=== PATIENT | female | born 1930 | race Caucasian/White ===

== ENCOUNTER 2019-05-16 12:28 | Observation (INO) ==
[2019-05-16] MEDS ORDERED: ACETAMINOPHEN 1,000 MG/100 ML VIAL IV STA (13:43)
[2019-05-16] MEDS ORDERED: SODIUM CHLORIDE 0.9% 500 ML IV SCH (13:45)
[2019-05-16 14:12] LABS: Basophils # (auto) 0.03 K/uL (0-0.2); Basophils % (auto) 0.8 %; Eosinophils # (auto) 0.12 K/uL (0-0.5); Hematocrit (blood only) 34.9 % (37-47); Hemoglobin 11.2 g/dL (12.0-16.0); Lymphocytes # (auto) 0.64 K/uL (1.2-3.4); Lymphocytes % (auto) 16.2 %; Mean Corpuscular Hgb Conc 32.1 g/dL (32-36); Mean Corpuscular Volume 93.6 fL (80-100); Mean Platelet Volume 9.7 fL (7.4-10.4); Monocytes # (auto) 0.31 K/uL (0.11-0.59); Monocytes % (auto) 7.8 %; Neutrophils # (auto) 2.85 K/uL (1.4-6.5); Neutrophils % (auto) 72.2 %; Platelet Count 269 K/uL (130-400); RDW Coefficient of Variation 14.6 % (11.5-14.5); RDW Standard Deviation 49.6 fL (36.4-46.3); Red Blood Count 3.73 M/uL (4.2-5.4); White Blood Count 3.95 K/uL (4.8-10.8)
--- NOTE | 2019-05-16 14:14 | XRay Report ---
XR chest 1V portable CLINICAL HISTORY: Chest Pain pain COMPARISON STUDY: No previous studies for comparison. FINDINGS: Poorly defined parenchymal infiltrate left base. Lungs otherwise appear clear. Mild stable cardiac enlargement. Diaphragms are smooth. Multiple old right-sided rib fractures. IMPRESSION: Poorly defined parenchymal infiltrate left base. ACT 112: Negative or not required by law. The above report was generated using voice recognition software. It may contain grammatical, syntax or spelling errors. Electronically signed by: Edwin Barrios M.D. 05/16/2019 2:13 PM
[2019-05-16 14:26] LABS: Alanine Aminotransferase 18 U/L (12-78); Aspartate Aminotransferase 15 U/L (15-37); BUN Creatinine Ratio 23.4 (10-20); Blood Urea Nitrogen 23 mg/dl (7-18); Calcium 8.4 mg/dl (8.5-10.1); Carbon Dioxide 27 mmol/L (21-32); Chloride 110 mmol/L (98-107); Est GFR (African American) 60.4; Est GFR (Non-African American) 52.1; Glucose 92 mg/dl (70-99); Lipase 115 U/L (73-393); Sodium 141 mmol/L (136-145)
[2019-05-16 14:31] LABS: Albumin Globulin Ratio 0.8 (0.9-2); Alkaline Phosphatase 91 U/L (45-117); Bilirubin,Total 0.3 mg/dl (0.2-1); Troponin I < 0.015 ng/ml (0-0.045)
--- NOTE | 2019-05-16 15:27 | CT Scan Report ---
ABDOMEN AND PELVIS CT WITHOUT CONTRAST CT DOSE: 367.97 mGy.cm HISTORY: low back pain TECHNIQUE: Multiaxial CT images of the abdomen and pelvis were performed without contrast. A dose lo wering technique was utilized adhering to the principles of ALARA. COMPARISON STUDY: None. FINDINGS: Patchy groundglass densities at the lung bases favor mild dependent change. No pneumoperito neum. No pneumatosis. Old nonunited right pubic bone fractures. 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 Old, healed right-sided rib fractures. Prior vertebroplasty at old L3 and L4 compression deformit ies. Mild superior endplate compressions weren't L1 is technically age indeterminate but also likely old. Mild paravertebral edema surrounding the acute to subacute inferior endplate compression fractur e at L5. This fracture extends into the left pedicle. This demonstrates less than 10% loss of height. No significant retropulsion. Right-sided L5 pars defect is noted. Moderate thickening of the visuali zed distal esophagus. The heart is mildly enlarged. There is a moderate hiatus hernia. Punctate calci fication within the uterus. The bladder is unremarkable. There is a 2 cm right ovarian cyst. The unen hanced liver, gallbladder, spleen, adrenal glands, and pancreas are unremarkable. No renal or uretera l stones. No hydronephrosis. A 1 cm exophytic hypodense lesion within the left kidney. This favors a hyperdense cyst. There are left peripelvic renal cysts. Tortuous abdominal aorta. No retroperitoneal lymphadenopathy. Suboptimal evaluation for bowel pathology due to the lack of intravenous and oral co ntrast. However, there is no definite bowel wall thickening or obstruction. Colonic diverticulosis. N o evidence for diverticulitis. IMPRESSION: 1. An acute to subacute mild inferior endplate compression fracture at L5. This extends into the left L5 pedicle. No associated retropulsion. 2. Additional old compression deformities and vertebroplasty within the lumbar spine as described abo ve. 3. No definite bowel wall thickening or obstruction on this noncontrast study. 4. Colonic diverticulosis. 5. Additional findings as described above. ACT 112: Negative or not required by law. Electronically signed by: Codey Jean M.D. 05/16/2019 3:26 PM
--- NOTE | 2019-05-16 15:44 | Electrocardiogram Report ---
Test Reason : Blood Pressure : / mmHG Vent. Rate : 067 BPM Atrial Rate : 067 BPM P-R Int : 170 ms QRS Dur : 088 ms QT Int : 414 ms P-R-T Axes : 042 020 056 degrees QTc Int : 437 ms Sinus rhythm with Premature supraventricular complexes Otherwise normal ECG When compared with ECG of 29-AUG-2011 13:49, Premature supraventricular complexes are now Present Confirmed by Willian Jordan ([id number]) on 05/16/2019 3:44:12 PM Referred By: Janay Hicks Confirmed By:Willian Jordan
[2019-05-16] MEDS ORDERED: MoRPHine SULFATE 2 MG/ML CARP IV STA (15:49)
--- NOTE | 2019-05-16 16:58 | Magnetic Resonance Report ---
MR lumbar spine wo con HISTORY: Pain low back pain TECHNIQUE: Multiplanar multisequence MRI of the lumbar spine was performed without the use of contras t. COMPARISON: None. FINDINGS: For the purpose of the report the L5-S1 disc space will be located on axial image 23 of 26. Moderate compression deformity of L4 with a more significant compression deformity of L3. Evidence fo r prior kyphoplasty set the sites. Edematous change of the bone marrow involving the L5 vertebral body as well as superior aspect of S1. It is suggestive of posttraumatic vertebral body contusions. No evidence for subluxation. Sagittal i mages suggest multifactorial narrowing of the spinal canal at multiple levels. L1-L2: Mild degenerative change of the posterior facets. No evidence for disc herniation or spinal st enosis. L2-L3: Broad-based disc herniation with moderate impact on the anterior thecal sac. Moderate multifac torial narrowing of the spinal canal. L3-L4: Significant multifactorial narrowing of the spinal canal. Broad-based disc herniation. Signifi cant narrowing of the right neural foramina. Considerable degenerative change posterior elements. L4-L5: Mild broad-based disc herniation. Moderate impact upon the anterior thecal sac. Moderate narro wing of the right and to a lesser extent left neural foramina. L5-S1: Considerable degenerative changes of posterior elements. Several small synovial cyst. Moderate narrowing of the neural foramina bilaterally. IMPRESSION: 1. Prior compression deformities and vertebroplasty at L3 and L4. 2. Bone contusions of the L5 and S1 vertebral bodies. 3. Broad-based disc herniation with Moderate impact upon the anterior thecal sac at L2-L3 with modera te narrowing of the spinal canal. 4. 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 Significant multifactorial narrowing of the spinal canal at both levels is suggested. 5. Considerable degenerative change posterior elements L5-S1 with moderate narrowing of the neural fo ramina bilaterally. ACT 112: Negative or not required by law. The above report was generated using voice recognition software. It may contain grammatical, syntax or spelling errors. Electronically signed by: Edwin Barrios M.D. 05/16/2019 4:57 PM
[2019-05-16] MEDS ORDERED: DEXAMETHASONE **PF** INJ 10 MG/ML VIAL IV ONE (17:17)
[2019-05-16] MEDS ORDERED: MoRPHine SULFATE 2 MG/ML CARP IV PRN ×2 (18:10→22:13)
--- NOTE | 2019-05-16 18:54 | Emergency Department Note ---
Entered by Elsy Mattson acting as a scribe for Shakeel Tompkins MD History of Present Illness General Chief complaint: Back Injury/Pain Stated complaint: BACK PAIN Time Seen by Provider: 05/16/19 13:03 Source: patient History of Present Illness Onset (ago): month(s) 1 Location: back Radiation: other (rght leg) Severity: similar to prior episodes Pain Consistency: + other (worsening) Maximum Pain Intensity: 10 Quality: + other (pressure) Associated symptoms: + other (Positive right leg, right toe and buttock numb ness, lost control of bowel, pelvic pressure, hard stools.); no fever/chills Treatments prior to arrival: other (Tylenol) The patient is an 88 year old male presenting to the Emergency Department complaining of worsening back pain starting 1 month ago. The patient reports that she has back pain that is radiating to down her right leg. She states that her buttocks and right toes are numb. She explains that she lost control of her bowel 1 day ago and that watery stool came out. She notes that she usually has a bowel movement every day but for the past few days her stools have been hard. She adds that she has pressure in her in her pelvic area. The patient reports that she has been taking Tylenol for her pain which hasnt been helping her back pain. She states that she has had back surgery and has osteoporosis. The patient denies recent fevers, chills and recent narcotic use. Home Medications Home Medications Medication Instructions Recorded Confirmed Type aspirin 325 mg tablet 325 mg PO DAILY tab 12/20/18 05/16/19 History multivitamin 1 tab PO DAILY 12/20/18 05/16/19 History cetirizine 10 mg tablet 10 mg PO DAILY #90 tab 02/10/19 05/16/19 History fluticasone 250 mcg-salmeterol 50 1 puffs INHALATION BID #3 ea 02/10/19 05/16/19 History mcg/dose blistr powdr for inhalation mometasone 50 mcg/actuation nasal 2 sprays INTRANASAL DAILY #3 gm 02/10/19 05/16/19 History spray losartan 50 mg PO DAILY 05/16/19 05/16/19 History metoprolol succinate [Toprol XL] 25 mg PO DAILY 05/16/19 05/16/19 History pregabalin 75 mg PO DAILY 05/16/19 05/16/19 History Allergies Allergy/AdvReac Type Severity Reaction Status Date / Time Penicillins Allergy Mild ITCHY RASH Verified 05/16/19 13:24 Sulfa (Sulfonamide Allergy Mild ITCHY RASH Verified 05/16/19 13:24 Antibiotics) alendronate sodium Allergy Verified 05/16/19 13:24 [From Fosamax] atorvastatin Allergy Verified 05/16/19 13:24 paroxetine Allergy Verified 05/16/19 13:24 Past Med/Surg History Medical History Allergic rhinitis (Acute) Anxiety disorder (Acute) Asthma (Acute) Chronic kidney disease, stage 3 (moderate) (Acute) Esophageal reflux (Acute) Hypertension (Acute) Nasal polyps (Acute) Nonrheumatic mitral (valve) insufficiency (Acute) Occipital neuralgia (Chronic) Osteoporosis (Acute) Paroxysmal atrial fibrillation with RVR (Acute) Peripheral neuropathy (Acute) Trigeminal neuralgia (Acute) Surgical History History of appendectomy History of arthroplasty of knee History of back surgery History of dilation and curettage History of hip surgery History of kyphoplasty percutaneous vertebral augmentation Status post nasal endoscopy with nasal polypectomy Family History Mother Stroke syndrome Father Myocardial infarction Unknown Coronary heart disease Social History Preferred Language: [place] 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 and A total of 10 systems reviewed and were otherwise negative Physical Exam Vital Signs Vital Signs - 24 hr 05/16/19 12:39 05/16/19 13:40 05/16/19 14:07 Temperature 36.6 C Temperature Source Oral Pulse Rate 108 H Pulse Rate [Finger] 66 Pulse Rhythm Regular Pulse Rhythm [Finger] Regular Pulse Strength Normal Pulse Strength [Finger] Normal Respiratory Rate 16 18 Respiratory Effort / Characteristics Non-Labored Non-Labored Respiratory Depth Normal Normal Respiratory Pattern Regular Blood Pressure 124/87 Blood Pressure [Right Arm] 154/80 H Blood Pressure Mean 99 Blood Pressure Mean [Right Arm] 104 Blood Pressure Position Sitting Blood Pressure Position [Right Arm] Pulse Oximetry 95 93 91 Oxygen Delivery Method Room Air Room Air Room Air Sepsis Recent Fever Within 48 Hours No Sepsis New/Unexplained Change in Mental Status No Sepsis Action Taken by Nursing No Action Required 05/16/19 14:08 05/16/19 16:30 05/16/19 17:24 Temperature Temperature Source Pulse Rate Pulse Rate [Finger] 72 81 71 Pulse Rhythm Pulse Rhythm [Finger] Regular Regular Pulse Strength Pulse Strength [Finger] Normal Respiratory Rate 18 22 17 Respiratory Effort / Characteristics Non-Labored Spontaneous Non-Labored Spontaneous Non-Labored Spontaneous Respiratory Depth Normal Normal Normal Respiratory Pattern Regular Regular Blood Pressure Blood Pressure [Right Arm] 143/88 H 164/78 H 144/86 H Blood Pressure Mean Blood Pressure Mean [Right Arm] 106 106 105 Blood Pressure Position Blood Pressure Position [Right Arm] Lying Pulse Oximetry 91 95 94 Oxygen Delivery Method Room Air Nasal Cannula Room Air Sepsis Recent Fever Within 48 Hours Sepsis New/Unexplained Change in Mental Status Sepsis Action Taken by Nursing 05/16/19 17:51 05/16/19 19:00 Temperature Temperature Source Pulse Rate Pulse Rate [Finger] 83 68 Pulse Rhythm Pulse Rhythm [Finger] Regular Pulse Strength Pulse Strength [Finger] Respiratory Rate 20 18 Respiratory Effort / Characteristics Non-Labored Spontaneous Non-Labored Spontaneous Respiratory Depth Normal Normal Respiratory Pattern Regular Blood Pressure Blood Pressure [Right Arm] 171/99 H 180/97 H Blood Pressure Mean Blood Pressure Mean [Right Arm] 123 124 Blood Pressure Position Blood Pressure Position [Right Arm] Lying Pulse Oximetry 95 92 Oxygen Delivery Method Room Air Room Air Sepsis Recent Fever Within 48 Hours Sepsis New/Unexplained Change in Mental Status Sepsis Action Taken by Nursing GENERAL: Awake, alert, uncomfortablel-appearing, in no distress HENT: Normocephalic, atraumatic. Oropharynx with dry mucous membranes and otherwise unremarkable. EYES: Normal conjunctiva. Sclera non-icteric. NECK: Supple. No nuchal rigidity. FROM. No JVD. RESPIRATORY: CTAB. CARDIAC: Regular rate, normal rhythm. Extremities warm and well perfused. Pulses equal. ABDOMEN: Soft, non-distended. No tenderness to palpation. No rebound or guarding. No masses. RECTAL: Deferred. MUSCULOSKELETAL: Mild lower lumbar discomfort without discrete tenderness. No midline ttp or step-offs. Chest examination reveals no tenderness. The back is symmetrical on inspection without obvious abnormality. There is no CVA ten derness to palpation. No joint edema. LOWER EXTREMITIES: Calves are equal size bilaterally and non-tender. No edema. No discoloration. NEURO: Normal sensorium. No sensory or motor deficits noted. 5/5 strength. SILT x 4 extremities. DTRs wnl. SKIN: No rash or jaundice noted. Course Course 1315: The patient was evaluated in room B11B, and a complete history and physical examination were performed. 1540: I reevaluated the patient at this time. 174: I reevaluated the patient at this time. 1844: Case was discussed with Dr. aWlker, orthopedic spine, who agrees with plan for admission. He will be available for inpatient team consultation. 1846: This was discussed with Fern Edmonds, who evaluate the pat ient for admission. Administered Medications Acetaminophen (Tylenol) 650 mg PO Q4H PRN PRN Reason: pain/fever Stop: 06/15/19 21:45 Last Admin: 05/16/19 23:36 Dose: 650 mg Documented by: [id number] Discontinued Medications Dexamethasone Sodium Phosphate (Decadron Pf) 10 mg IV NOW ONE Stop: 05/16/19 17:18 Last Admin: 05/16/19 17:21 Dose: 10 mg Documented by: [id number] Sodium Chloride (Nss) 500 mls @ 999 mls/hr IV .Q31M [facility] Stop: 05/16/19 14:15 Last Infusion: 05/16/19 15:49 Dose: 0 mls/hr Documented by: [id number] Admin: 05/16/19 14:02 Dose: 999 mls/hr Documented by: [id number] Acetaminophen (Ofirmev) 1,000 mg in 100 mls @ 400 mls/hr IV NOW STA Stop: 05/16/19 13:57 Last Infusion: 05/16/19 14:43 Dose: 0 mls/hr Documented by: [id number] Admin: 05/16/19 14:02 Dose: 400 mls/hr Documented by: [id number] Morphine Sulfate (Morphine Sulfate) 2 mg IV NOW STA Stop: 05/16/19 15:50 Last Admin: 05/16/19 16:22 Dose: 2 mg Documented by: [id number] Morphine Sulfate (Morphine Sulfate) 2 mg IV Q2H PRN PRN Reason: Pain Stop: 05/30/19 18:09 Last Admin: 05/16/19 19:22 Dose: 2 mg Documented by: [id number] Medical Decision Making Differential Diagnosis Differential diagnosis: Etiologies such as musculoskeletal, disc herniation, fracture, aortic disease, metastatic disease, cord compression, discitis, infection, renal colic, gastrointestinal, acute exacerbation of chronic back pain, sciatica, cauda equina, as well as others were entertained. Medical Records Attestation: I reviewed the patient's medical records. Home Medications Current Medication List: was personally reviewed by me Laboratory Data Attestation: I reviewed the patient's lab results. Result diagrams: 05/16/19 13:55 05/16/19 13:55 Lab Results 05/16/19 05/16/19 Range/Units 13:55 13:55 WBC 3.95 L (4.8-10.8) K/uL RBC 3.73 L (4.2-5.4) M/uL Hgb 11.2 L (12.0-16.0) g/dL Hct 34.9 L (37-47) % MCV 93.6 (80-100) fL MCH 30.0 (25-34) pg MCHC 32.1 (32-36) g/dL RDW Std Deviation 49.6 H (36.4-46.3) fL RDW Coeff of Alexa 14.6 H (11.5-14.5) % Plt Count 269 (130-400) K/uL MPV 9.7 (7.4-10.4) fL Immature Gran % (Auto) 0.0 % Neut % (Auto) 72.2 % Lymph % (Auto) 16.2 % [place] % (Auto) 7.8 % Eos % (Auto) 3.0 % Baso % (Auto) 0.8 % Immature Gran # (Auto) 0.00 (0.00-0.02) K/uL Neut # (Auto) 2.85 (1.4-6.5) K/uL Lymph # (Auto) 0.64 L (1.2-3.4) K/uL [place] # (Auto) 0.31 (0.11-0.59) K/uL Eos # (Auto) 0.12 (0-0.5) K/uL Baso # (Auto) 0.03 (0-0.2) K/uL Sodium 141 (136-145) mmol/L Potassium 4.0 (3.5-5.1) mmol/L Chloride 110 H (98-107) mmol/L Carbon Dioxide 27 (21-32) mmol/L Anion Gap 4.0 (3-11) BUN 23 H (7-18) mg/dl Creatinine 0.97 (0.6-1.2) mg/dl Est Cr Clr Drug Dosing Not Reportable Est GFR ( Amer) 60.4 Est GFR (Non-Af Amer) 52.1 BUN/Creatinine Ratio 23.4 H (10-20) Glucose 92 (70-99) mg/dl Calcium 8.4 L (8.5-10.1) mg/dl Total Bilirubin 0.3 (0.2-1) mg/dl AST 15 (15-37) U/L ALT 18 (12-78) U/L Alkaline Phosphatase 91 (45-117) U/L Troponin I < 0.015 (0-0.045) ng/ml Total Protein 7.0 (6.4-8.2) gm/dl Albumin 3.0 L (3.4-5.0) gm/dl Globulin 4.0 (2.5-4.0) gm/dl Albumin/Globulin Ratio 0.8 L (0.9-2) Lipase 115 (73-393) U/L Imaging Data Radiologist's Impression: Radiology results as stated below per my review and the radiologist's interpretation: MR lumbar spine wo con HISTORY: Pain low back pain TECHNIQUE: Multiplanar multisequence MRI of the lumbar spine was performed without the use of contrast. COMPARISON: None. FINDINGS: For the purpose of the report the L5-S1 disc space will be located on axial image 23 of 26. Moderate compression deformity of L4 with a more significant compression deformity of L3. Evidence for prior kyphoplasty set the sites. Edematous change of the bone marrow involving the L5 vertebral body as well as superior aspect of S1. It is suggestive of posttraumatic vertebral body contusions. No evidence for subluxation. Sagittal images suggest multifactorial narrowing of the spinal canal at multiple levels. L1-L2: Mild degenerative change of the posterior facets. No evidence for disc herniation or spinal stenosis. L2-L3: Broad-based disc herniation with moderate impact on the anterior thecal sac. Moderate multifactorial narrowing of the spinal canal. L3-L4: Significant multifactorial narrowing of the spinal canal. Broad-based disc herniation. Significant narrowing of the right neural foramina. Considerable degenerative change posterior elements. L4-L5: Mild broad-based disc herniation. Moderate impact upon the anterior thecal sac. Moderate narrowing of the right and to a lesser extent left neural foramina. L5-S1: Considerable degenerative changes of posterior elements. Several small synovial cyst. Moderate narrowing of the neural foramina bilaterally. IMPRESSION: 1. Prior compression deformities and vertebroplasty at L3 and L4. 2. Bone contusions of the L5 and S1 vertebral bodies. 3. Broad-based disc herniation with Moderate impact upon the anterior thecal sac at L2-L3 with moderate narrowing of the spinal canal. 4. 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 Significant multifactorial narrowing of the spinal canal at both levels is suggested. 5. Considerable degenerative change posterior elements L5-S1 with moderate narrowing of the neural foramina bilaterally. ACT 112: Negative or not required by law. The above report was generated using voice recognition software. It may contain grammatical, syntax or spelling errors. Electronically signed by: Edwin Barrios M.D. 05/16/2019 4:57 PM ABDOMEN AND PELVIS CT WITHOUT CONTRAST CT DOSE: 367.97 mGy.cm HISTORY: low back pain TECHNIQUE: Multiaxial CT images of the abdomen and pelvis were performed without contrast. A dose lowering technique was utilized adhering to the principles of ALARA. COMPARISON STUDY: None. FINDINGS: Patchy groundglass densities at the lung bases favor mild dependent ch griffin. No pneumoperitoneum. No pneumatosis. Old nonunited right pubic bone fractures. There is a right total hip arthroplasty. Old, healed right-sided rib fractures. Prior vertebroplasty at old L3 and L4 compression deformities. Mild superior endplate compressions weren't L1 is technically age indeterminate but also likely old. Mild paravertebral edema surrounding the acute to subacute inferior endplate compression fracture at L5. This fracture extends into the left pedicle. This demonstrates less than 10% loss of height. No significant retropulsion. Right-sided L5 pars defect is noted. Moderate thickening of the visualized distal esophagus. The heart is mildly enlarged. There is a moderate h iatus hernia. Punctate calcification within the uterus. The bladder is unremarkable. There is a 2 cm right ovarian cyst. The unenhanced liver, gallbladder, spleen, adrenal glands, and pancreas are unremarkable. No renal or ureteral stones. No hydronephrosis. A 1 cm exophytic hypodense lesion within the left kidney. This favors a hyperdense cyst. There are left peripelvic renal cysts. Tortuous abdominal aorta. No retroperitoneal lymphadenopathy. Suboptimal evaluation for bowel pathology due to the lack of intravenous and oral contrast. However, there is no definite bowel wall thickening or obstruction. Colonic diverticulosis. No evidence for diverticulitis. IMPRESSION: 1. An acute to subacute mild inferior endplate compression fracture at L5. This extends into the left L5 pedicle. No associated retropulsion. 2. Additional old compression deformities and vertebroplasty within the lumbar spine as described above. 3. No definite bowel wall thickening or obstruction on this noncontrast study. 4. Colonic diverticulosis. 5. Additional findings as described above. ACT 112: Negative or not required by law. Electronically signed by: Codey Jean M.D. 05/16/2019 3:26 PM XR chest 1V portable CLINICAL HISTORY: Chest Pain pain COMPARISON STUDY: No previous studies for comparison. FINDINGS: Poorly defined parenchymal infiltrate left base. Lungs otherwise appear clear. Mild stable cardiac enlargement. Diaphragms are smooth. Multiple old right-sided rib fractures. IMPRESSION: Poorly defined parenchymal infiltrate left base. ACT 112: Negative or not required by law. The above report was generated using voice recognition software. It may contain grammatical, syntax or spelling errors. Electronically signed by: Edwin Barrios M.D. 05/16/2019 2:13 PM ECG Data Attestation: I personally reviewed and interpreted this ECG as follows: Indication: + back/shoulder pain Rate (beats per minute): 67 Rhythm: + sinus rhythm ECG [place]: + Normal ECG ST segments: no ST depression and no ST elevation ECG Findings: + Other (QT-c 437. PSVCs.) Blood Pressure Blood Pressure Findings: Elevated blood pressure Blood Pressure Disposition: further management by hospitalist NATY Mancini The patient is a pleasant 88-year-old woman with pmhx of PAF who presents emergency department with persistent lower back pain over the past month which has become worse over the past several days per HPI. Of note, the patient reports having scant anal leakage last night but does report having a controlled bowel movement this morning. Denies any urinary retention. She is able to amb ulate with her walker but does report significant pain. CT Abd pelvis was performed and demonstrated acute to subacute mild inferior endplate compression fracture at L5 without any significant retropulsion. The patient was reevaluated and feeling improved after IV Tylenol however still with pain. Thus, patient was treated with IV Decadron and morphine and we agreed to proceed with a lumbar MRI. MRI demonstrates patient's previously noted compression fracture however does demonstrate disc herniation in the lumbar region with moderate to severe canal narrowing and some compression of the thecal sac. She was feeling improved after IV morphine. Given her worsening symptoms and MRI findings reasonable to admit the patient for pain control and spine evaluation. Patient was agreeable with this plan. Patient's case and MRI reviewed with Dr. Walker, orthopedic spine,. He agrees with plan for admission for pain control and he will be available for inpatient team consultation. Case was discussed with Fern Edmonds, who will evaluate the patient for admission. Impression & Plan Lumbosacral disc herniation, Compression fracture of lumbar vertebra Discharge Plan Visit Data *Final* Discharge Date/Time: 05/16/19 21:31 Chief Complaint: Back Injury/Pain Stated Complaint: BACK PAIN ED Provider: Shakeel Tompkins Discharge Problem: Lumbosacral disc herniation, Compression fracture of lumbar vertebra Patient Disposition: Admitted As Inpatient Discharge Instructions Interventions: ED Discharge Assessment Last Done: 05/16/19 21:31 The scribe's documentation has been prepared under my direction and personally reviewed by me in its entirety. I confirm that the note above accurately reflects all work, treatment, procedures, and medical decision making performed by me.
--- NOTE | 2019-05-16 21:30 | History & Physical Report ---
Date of Service May 16, 2019 Assessment & Plan (1) Back pain with right-sided radiculopathy: Present on admission with worsening low back pain radiated to the right lower extremity CT abd/pelvis showed acute to subacute mild inferior endplate compression fracture at L5. This extends into the left L5 pedicle. No associated retropulsion. Lumbar MRI showed: 1. Bone contusions of the L5 and S1 vertebral bodies. 3. Broad-based disc herniation with Moderate impact upon the anterior thecal sac at L2-L3 with moderate narrowing of the spinal canal. 4. Broad-based disc herniation at L3-L4 and L4-L5 combined with degenerative change posterior elements. Significant multifactorial narrowing of the spinal canal at both levels is suggested. 5. Considerable degenerative change posterior elements L5-S1 with moderate narrowing of the neural foramina bilaterally. Receive IV morphine and Decadron 10 mg in the ER Orthopedic consult Case discussed with orthopedic doctor Aaron recommended conservative management Will start Decadron 10 mg q8h as per Dr. Walker Will monitor blood sugar while on IV Decadron PT/OT eval Continue pain control Fall precaution Occipital Neuralgia Idiopathic peripheral neuropathy Continue Lyrica COPD Will hold Advair since pt is getting decadron 10mg q8h Will do Duoneb prn Abnomal CXR CXR showed poorly defined parenchymal infiltrate left base. Denies any upper respiratory infection Afebrile no leukocytosis Will hold on antibiotic for now, but if pt develops respiratory symptoms/febrile will start on abx Paroxysmal A. fib Rate control with metoprolol Xarelto was discontinued few years ago due to rectal bleeding Continue aspirin HTN BP elevates possible due to low back pain Continue Losartan Will add hydralazine prn for SBP above 170 DVT px SCD (due to history of rectal bleeding from anticoagulant in the past) CODE State condition code (does not want [facility]) History of Present Illness Chief Complaint: Low back pain Primary Care Provider: Janay Hicks DO 88 years old female with past medical history of paroxysmal A. fib, pulmonary hypertension, chronic diastolic CHF, hypertension, COPD presented to the ER with low back pain. Patient said about 1 month ago she had a fall while hanging light in front of her porch. She said she slipped and hit her back. She said she got up and ambulated fine but few days later she developed severe low back pain. She said she went to the urgent care where she had an x-ray done that was negative and prednisone was given. Patient said her back pain has been gradually worsening. She said the pain is worse around the tailbone area and radiated to her right thigh all the way down to her big toe. She said the pain is worse with movement sitting or standing and walking. She said that she has not been moving around much because her right lower extremity feels weak, numb and giving up on her. She said that she has to hold her right knee when ambulating for support to avoid falling. She said the pain is constant grade 9 out of 10 in severity. She said she has been taking Tylenol that provides some relief for about an hour. She said last week she had some urinary incontinence that is resolved this week. She said she is able to control her bowel and her bladder now. she said that about 5 years ago she had rectal bleeding from Xarelto where she had to receive 4 to 5 units of blood and the anticoagulant was discontinued. Denies any bowel or bladder loss, chest pain, palpitation, dizziness and fever. Allergies Allergy/AdvReac Type Severity Reaction Status Date / Time Penicillins Allergy Mild ITCHY RASH Verified 05/16/19 13:24 Sulfa (Sulfonamide Allergy Mild ITCHY RASH Verified 05/16/19 13:24 Antibiotics) alendronate sodium Allergy Verified 05/16/19 13:24 [From Fosamax] atorvastatin Allergy Verified 05/16/19 13:24 paroxetine Allergy Verified 05/16/19 13:24 Home Medications Home Medications Medication Instructions Recorded Confirmed Type aspirin 325 mg tablet 325 mg PO DAILY tab 12/20/18 05/16/19 History multivitamin 1 tab PO DAILY 12/20/18 05/16/19 History cetirizine 10 mg tablet 10 mg PO DAILY #90 tab 02/10/19 05/16/19 History fluticasone 250 mcg-salmeterol 50 1 puffs INHALATION BID #3 ea 02/10/19 05/16/19 History mcg/dose blistr powdr for inhalation mometasone 50 mcg/actuation nasal 2 sprays INTRANASAL DAILY #3 gm 02/10/19 05/16/19 History spray losartan 50 mg PO DAILY 05/16/19 05/16/19 History metoprolol succinate [Toprol XL] 25 mg PO DAILY 01/06/20 01/06/20 History pregabalin 75 mg PO DAILY 05/16/19 05/16/19 History Past Med/Surg History Surgical History History of appendectomy History of arthroplasty of knee History of back surgery History of dilation and curettage History of hip surgery History of kyphoplasty percutaneous vertebral augmentation Status post nasal endoscopy with nasal polypectomy Family History Mother Stroke syndrome Father Myocardial infarction Unknown Coronary heart disease Social History Preferred Language: Syriac Feels Safe at Home: Yes Smoking Status: Never smoker Review of Systems Review of Systems: All systems reviewed & are unremarkable except as noted in HPI & below Physical Exam Physical Exam: General- No acute distress Head- atraumatic Eyes- PERRL, EOMI, ENT- oropharynx clear Neck- supple, no JVD Lungs- clear to auscultation Heart- regular rhythm; +murmur Abdomen- normal bowel sounds, soft, nontender Extremities- no calf tenderness, Right great toe numbness Neuro- alert, oriented x 3; PERRL, EOMI; no facial palsy; no dysarthria Skin- warm & dry Results & Data Vital Signs (Past 12 Hours) Vital Signs Temp Pulse Pulse Resp BP BP Pulse Ox 05/16/19 19:00 68 18 180/97 H 92 05/16/19 17:51 83 20 171/99 H 95 05/16/19 17:24 71 17 144/86 H 94 05/16/19 16:30 81 22 164/78 H 95 05/16/19 14:08 72 18 143/88 H 91 05/16/19 14:07 91 05/16/19 13:40 66 18 154/80 H 93 05/16/19 12:39 36.6 C 108 H 16 124/87 95
[2019-05-16] MEDS ORDERED: ALBUT/IPRATROP 3MG/0.5MG NEB 3 ML VIAL NEB PRN (22:12)
[2019-05-16] MEDS ORDERED: HydrALAZINE HCL 20 MG/ML VIAL IV PRN (22:12)
[2019-05-16] MEDS: ACETAMINOPHEN 325 MG TAB PO PRN (23:36)
[2019-05-17] MEDS: dexAMETHasone 10 MG in SYRINGE 0 ML IV SCH ×3 (02:45→18:13)
[2019-05-17] MEDS ORDERED: ONDANSETRON INJ 2 MG/ML 2 ML VIAL IV ONE (08:22)
[2019-05-17 08:42] LABS: Hematocrit (blood only) 39.5 % (37-47); Hemoglobin 12.7 g/dL (12.0-16.0); Mean Corpuscular Hemoglobin 30.7 pg (25-34); Mean Corpuscular Hgb Conc 32.2 g/dL (32-36); Mean Corpuscular Volume 95.4 fL (80-100); Mean Platelet Volume 9.5 fL (7.4-10.4); Platelet Count 333 K/uL (130-400); RDW Coefficient of Variation 14.5 % (11.5-14.5); RDW Standard Deviation 50.3 fL (36.4-46.3); Red Blood Count 4.14 M/uL (4.2-5.4); White Blood Count 4.29 K/uL (4.8-10.8)
[2019-05-17] MEDS ORDERED: CETIRIZINE HCL 10 MG TABLET PO SCH (09:00)
[2019-05-17] MEDS ORDERED: MULTIVITAMIN TAB PO SCH (09:00)
[2019-05-17] MEDS ORDERED: LOSARTAN POTASSIUM 50 MG TAB PO SCH (09:00)
[2019-05-17] MEDS ORDERED: METOPROLOL SUCC 25MG EXT REL TAB PO SCH (09:00)
[2019-05-17] MEDS ORDERED: PREGABALIN 75 MG CAP PO SCH (09:00)
[2019-05-17] MEDS ORDERED: ASPIRIN 325 MG ECTAB PO SCH (09:00)
[2019-05-17 09:21] LABS: BUN Creatinine Ratio 18.7 (10-20); Calcium 8.9 mg/dl (8.5-10.1); Creatinine Clr Calc Pharmacy 32.1 ml/min; Est GFR (African American) 46.7; Est GFR (Non-African American) 40.3; Magnesium 2.2 mg/dl (1.8-2.4); Potassium 3.8 mmol/L (3.5-5.1)
--- NOTE | 2019-05-17 10:18 | Orthopedic Consultation ---
Date of Consultation May 17, 2019 Assessment & Plan (1) Back pain with right-sided radiculopathy: Images: Multilevel lumbar spondylosis with stenosis spinal canal high- grade is moderate. There is no tumor and there is no cancer no high-grade spondylolisthesis or stenosis. There is evidence of old kyphoplasty's procedures Assessment: Delightful 88-year-old female with combination stenosis spondylosis lumbar spine. Severe osteoporosis. No high-grade issues. No apparent obvious surgical indications Plan: Pain management is appropriate thus far well with the steroids. Recommending getting the pain management team involved with her care if she is not improving. I will gladly see her back as an outpatient around on her daily. History of Present Illness Reason for Consultation: Chief complaint: Low back pain right buttock pain right lower extremity difficulty. Pain significantly for her today sharp in nature. Ongoing now for about 2 months in duration. Was doing [employer] in March brought on the significant pain. Significant enough for her she did make a trip to the emergency room for evaluation treatment. She was admitted for pain control Attending Physician: Glen Álvarez MD Allergies Allergy/AdvReac Type Severity Reaction Status Date / Time Penicillins Allergy Mild ITCHY RASH Verified 05/16/19 13:24 Sulfa (Sulfonamide Allergy Mild ITCHY RASH Verified 05/16/19 13:24 Antibiotics) alendronate sodium Allergy Verified 05/16/19 13:24 [From Fosamax] atorvastatin Allergy Verified 05/16/19 13:24 paroxetine Allergy Verified 05/16/19 13:24 Home Medications Home Medications Medication Instructions Recorded Confirmed Type aspirin 325 mg tablet 325 mg PO DAILY tab 12/20/18 05/16/19 History multivitamin 1 tab PO DAILY 12/20/18 05/16/19 History cetirizine 10 mg tablet 10 mg PO DAILY #90 tab 02/10/19 05/16/19 History fluticasone 250 mcg-salmeterol 50 1 puffs INHALATION BID #3 ea 02/10/19 05/16/19 History mcg/dose blistr powdr for inhalation mometasone 50 mcg/actuation nasal 2 sprays INTRANASAL DAILY #3 gm 02/10/19 05/16/19 History spray losartan 50 mg PO DAILY 05/16/19 05/16/19 History metoprolol succinate [Toprol XL] 25 mg PO DAILY 05/16/19 05/16/19 History pregabalin 75 mg PO DAILY 05/16/19 05/16/19 History Patient History Medical History Allergic rhinitis (Acute) Anxiety disorder (Acute) Asthma (Acute) Chronic kidney disease, stage 3 (moderate) (Acute) Esophageal reflux (Acute) Hypertension (Acute) Nasal polyps (Acute) Nonrheumatic mitral (valve) insufficiency (Acute) Occipital neuralgia (Chronic) Osteoporosis (Acute) Paroxysmal atrial fibrillation with RVR (Acute) Peripheral neuropathy (Acute) Trigeminal neuralgia (Acute) Surgical History History of appendectomy History of arthroplasty of knee History of back surgery History of dilation and curettage History of hip surgery History of kyphoplasty percutaneous vertebral augmentation Status post nasal endoscopy with nasal polypectomy Family History Mother Stroke syndrome Father Myocardial infarction Unknown Coronary heart disease Social History Preferred Language: Romansh Histology Assistant Required: No Beliefs That Will Affect Care: None Current Living Situation: Alone Other Information That Helps Us Care for You: No Feels Safe at Home: Yes Safety Concerns: Feels Safe At This Time Smoking Status: Never smoker Hx Alcohol Use: No Hx Substance Use: No Review of Systems Review of Systems: No fever sweats chills unexplained weight loss gain No nausea vomiting urgency frequency. She has no true incontinence of bowel function but trouble with retention Denies skin changes or neurological issues Denies vascular insults Physical Exam Physical Exam: Vital signs stable occluding a pulse 86 bpm Pupils reactive to light essentially normal1 Skin integumentary normal no zoster rashe Heart lungs not auscultated Neurologic: She has adequate motor strength of lower extremities no's sensory or reflex changes. No significant pain with straight leg raising Musculoskeletal: Examination normal with good motion flexion extension internal and external rotation no leg length discrepancy s Results & Data Vital Signs (Past 12 Hours) Vital Signs Temp Pulse Resp BP Pulse Ox 05/17/19 07:08 36.5 C 86 16 139/83 91 05/16/19 23:20 36.9 C 77 16 162/94 H 92 PG Care Time/CCT Total # of Minutes Spent Total Time Spent with Patient: Total time spent is greater than 50% in coordination of care (as documented) at patient's floor/unit and/or counseling patient:
--- NOTE | 2019-05-17 12:26 | Pain Management Consultation ---
Date of Consultation May 17, 2019 Assessment & Plan (1) Back pain with right-sided radiculopathy: 1. The patient reports resolution of her pain at this time with IV steroids and oral Tylenol. She denies need for additional pain services at this time 2. She was provided my office contact information should she have difficulty with pain in the future. Could consider L5-S1 interlaminar epidural steroid injections versus other adjuvant medications 3. Should oral Tylenol not be sufficient in reducing her pain at this time, recommend utilization of tramadol 50 mg p.o. every 8 to every 12 as needed pain. She was counseled on risk benefits and side effects of the medications 4. PT and OT as previously ordered 5. Thank you for this consult I be happy to see her in my office should she have any further questions. We will sign off at this time. (2) Lumbosacral disc herniation: (3) Peripheral neuropathy: (4) Compression fracture of lumbar vertebra: (5) Chronic kidney disease, stage 3 (moderate): History of Present Illness Attending Physician: Glen Álvarez MD History of Present Illness 88-year-old female who was hanging [employer] decorations in March and fell leading to a L5 and S1 contusion per MRI this admission. She states she was having intractable 50% axial 50% right L5 radicular symptoms to the level of the toes. She states that pain was excruciating at home 9-10 out of 10 prompting presentation to the [facility] emergency room. She states that with utilization of IV steroids and 2 doses of IV morphine pain is now 0 out of 10. She reports only needing oral Tylenol last evening as well as continued IV steroids to minimize pain. She reports she slept well without difficulty. She denies any bowel or bladder incontinence, motor weakness, footdrop, fever, chills, night sweats. She has a past history of compression fracture at L3 and L4 requiring vertebroplasty x2. She reports prior epidural steroid injection x2 approximately 20 years ago in [place] for her lumbar spinal stenosis with excellent results. Pain Assessment Full Body Front + Back: 1. [facility] Combined Pain Scale: 0 - No Pain Allergies Allergy/AdvReac Type Severity Reaction Status Date / Time Penicillins Allergy Mild ITCHY RASH Verified 05/16/19 13:24 Sulfa (Sulfonamide Allergy Mild ITCHY RASH Verified 05/16/19 13:24 Antibiotics) alendronate sodium Allergy Verified 05/16/19 13:24 [From Fosamax] atorvastatin Allergy Verified 05/16/19 13:24 paroxetine Allergy Verified 05/16/19 13:24 Home Medications Home Medications Medication Instructions Recorded Confirmed Type aspirin 325 mg tablet 325 mg PO DAILY tab 12/20/18 05/16/19 History multivitamin 1 tab PO DAILY 12/20/18 05/16/19 History cetirizine 10 mg tablet 10 mg PO DAILY #90 tab 02/10/19 05/16/19 History fluticasone 250 mcg-salmeterol 50 1 puffs INHALATION BID #3 ea 02/10/19 05/16/19 History mcg/dose blistr powdr for inhalation mometasone 50 mcg/actuation nasal 2 sprays INTRANASAL DAILY #3 gm 02/10/19 05/16/19 History spray losartan 50 mg PO DAILY 05/16/19 05/16/19 History metoprolol succinate [Toprol XL] 25 mg PO DAILY 05/16/19 05/16/19 History pregabalin 75 mg PO DAILY 05/16/19 05/16/19 History Patient History Medical History Allergic rhinitis (Acute) Anxiety disorder (Acute) Asthma (Acute) Chronic kidney disease, stage 3 (moderate) (Acute) Esophageal reflux (Acute) Hypertension (Acute) Nasal polyps (Acute) Nonrheumatic mitral (valve) insufficiency (Acute) Occipital neuralgia (Chronic) Osteoporosis (Acute) Paroxysmal atrial fibrillation with RVR (Acute) Peripheral neuropathy (Acute) Trigeminal neuralgia (Acute) Surgical History History of appendectomy History of arthroplasty of knee History of back surgery History of dilation and curettage History of hip surgery History of kyphoplasty percutaneous vertebral augmentation Status post nasal endoscopy with nasal polypectomy Family History Mother Stroke syndrome Father Myocardial infarction Unknown Coronary heart disease Social History Preferred Language: Japanese Civil Drafting Technician Required: No Beliefs That Will Affect Care: None Current Living Situation: Alone Other Information That Helps Us Care for You: No Feels Safe at Home: Yes Safety Concerns: Feels Safe At This Time Smoking Status: Never smoker Hx Alcohol Use: No Hx Substance Use: No Physical Exam Physical Exam: Constitutional: Well-developed, well-nourished, slightly frail. Accompanied by her son on exam (pt gave permission to speak in front of son) Psych: Awake, alert, and oriented 3 with normal affect and mood. Recent memory appears grossly intact Eyes: Pupils are equally round and reactive to light with normal size pupils, eyelids appear normal Ear, nose, mouth, and throat: Moist nasal and oral membranes, lips and tongues a ppear normal, no external ear abnormalities are noted Neck: The trachea is midline without deviation and no thyromegaly is noted Respiratory: Normal respiratory effort without distress, no audible wheezes or rhonchi CV: Normal S1 and S2 Chest: Deferred GI/abdomen: Non-tender without guarding soft Musculoskeletal: Head is normocephalic and atraumatic, gait not observed Cervical: Lordotic curve: Normal Range of motion is normal with extension, flexion, side-bending, rotation Strength: Strength is equal bilaterally with 5 out of 5 strength in all planes Sensation of upper extremities: Intact bilaterally Thoracic: Kyphotic curve: slightly increased kyphosis Range of motion is decreased slightly with extension, flexion, side-bending, rotation Tenderness: Nontender over the axial midline Facet provocation: Negative bilaterally Myofascial spasm: No appreciable spasm. No discrete trigger points noted Lumbar: Lordotic curve: near complete loss of lumbar lordosis Range of motion is decreased in all planes with extension, flexion, side- bending, rotation Tenderness: mild to moderately tender over the axial midline particularly from L4-S1 Facet provocation: Negative bilaterally Straight leg raise: Negative bilaterally Step-off injuries: None Strength: Strength is equal bilaterally with 5 out of 5 strength in all planes Sensation of lower extremities: Intact bilaterally Deep tendon reflexes: Rated at 1+ in bilateral L4 and S1 Myofascial spasm: Minimal appreciable spasm. No discrete trigger points noted Greater trochanters: Nontender bilaterally Sacroiliac joints: Nontender bilaterally Pathologic reflexes noted: None Skin: No rashes, lesions, ulcers, or induration noted Neuro: No nystagmus noted, the tongue is midline, the patient is able to rotate their head bilaterally : Deferred Results Diagnostic Review MRI: non enhanced, reports reviewed and findings discussed with patient MRI Findings: MR Lumbar spine wo con 05/16/19 HISTORY: Pain low back pain TECHNIQUE: Multiplanar multisequence MRI of the lumbar spine was performed without the use of contrast. COMPARISON: None. FINDINGS: For the purpose of the report the L5-S1 disc space will be located on axial image 23 of 26. Moderate compression deformity of L4 with a more significant compression deformity of L3. Evidence for prior kyphoplasty set the sites. Edematous change of the bone marrow involving the L5 vertebral body as well as superior aspect of S1. It is suggestive of posttraumatic vertebral body contusions. No evidence for subluxation. Sagittal images suggest multifactorial narrowing of the spinal canal at multiple levels. L1-L2: Mild degenerative change of the posterior facets. No evidence for disc herniation or spinal stenosis. L2-L3: Broad-based disc herniation with moderate impact on the anterior thecal sac. Moderate multifactorial narrowing of the spinal canal. L3-L4: Significant multifactorial narrowing of the spinal canal. Broad-based disc herniation. Significant narrowing of the right neural foramina. Considerable degenerative change posterior elements. L4-L5: Mild broad-based disc herniation. Moderate impact upon the anterior thecal sac. Moderate narrowing of the right and to a lesser extent left neural foramina. L5-S1: Considerable degenerative changes of posterior elements. Several small synovial cyst. Moderate narrowing of the neural foramina bilaterally. IMPRESSION: 1. Prior compression deformities and vertebroplasty at L3 and L4. 2. Bone contusions of the L5 and S1 vertebral bodies. 3. Broad-based disc herniation with Moderate impact upon the anterior thecal sac at L2-L3 with moderate narrowing of the spinal canal. 4. Broad-based disc herniation at L3-L4 and L4-L5 combined with degenerative change posterior elements. Significant multifactorial narrowing of the spinal canal at both levels is suggested. 5. Considerable degenerative change posterior elements L5-S1 with moderate narrowing of the neural foramina bilaterally. Previous Records Review Previous Records: personally reviewed by me Opioid Risk Assessment Opioid Risk Assessment: risk assessment performed and no issues identified
[2019-05-17] MEDS ORDERED: TRAMADOL HCL 50 MG TABLET PO PRN (12:46)
[2019-05-17] MEDS ORDERED: TRAMADOL HCL 50 MG TABLET PO SCH (13:00)
[2019-05-17] MEDS ORDERED: CALCIUM CARBONATE 500 MG CHEWABLE TAB PO PRN (17:10)
--- NOTE | 2019-05-17 19:25 | Discharge Summary ---
Date of Service May 17, 2019 Admission HPI Per Admitting Provider 88 years old female with past medical history of paroxysmal A. fib, pulmonary hypertension, chronic diastolic CHF, hypertension, COPD presented to the ER with low back pain. Patient said about 1 month ago she had a fall while hanging light in front of her porch. She said she slipped and hit her back. She said she got up and ambulated fine but few days later she developed severe low back pain. She said she went to the urgent care where she had an x-ray done that was negative and prednisone was given. Patient said her back pain has been gradually worsening. She said the pain is worse around the tailbone area and radiated to her right thigh all the way down to her big toe. She said the pain is worse with movement sitting or standing and walking. She said that she has not been moving around much because her right lower extremity feels weak, numb and giving up on her. She said that she has to hold her right knee when ambulating for support to avoid falling. She said the pain is constant grade 9 out of 10 in severity. She said she has been taking Tylenol that provides some relief for about an hour. She said last week she had some urinary incontinence that is resolved this week. She said she is able to control her bowel and her bladder now. she said that about 5 years ago she had rectal bleeding from Xarelto where she had to receive 4 to 5 units of blood and the anticoagulant was discontinued. Denies any bowel or bladder loss, chest pain, palpitation, dizziness and fever. Admission Exam Per Admitting Provider General- No acute distress Head- atraumatic Eyes- PERRL, EOMI, ENT- oropharynx clear Neck- supple, no JVD Lungs- clear to auscultation Heart- regular rhythm; +murmur Abdomen- normal bowel sounds, soft, nontender Extremities- no calf tenderness, Right great toe numbness Neuro- alert, oriented x 3; PERRL, EOMI; no facial palsy; no dysarthria Skin- warm & dry Principal Diagnosis Back pain with right-sided radiculopathy due to lumbosacral herniation, and compression fracture of lumbar vertebra Discharge Exam General- elderly female lying in bed in no acute distress, family present at the bedside Head- normocephalic, atraumatic Eyes- PERRL, EOMI ENT- oropharynx clear Neck- supple, no JVD Lungs- clear to auscultation b/l, no wheezing, rhonchi, crackles Heart- regular rhythm; +murmur Abdomen- normal bowel sounds, soft, nontender, nondistended, no guarding Extremities- no calf tenderness, moves extremities spontaneously Neuro- alert, oriented x 3; PERRL, EOMI; no facial palsy; no dysarthria, moves extremities spontaneously Skin- warm & dry Discharge Data Allergies Allergy/AdvReac Type Severity Reaction Status Date / Time Penicillins Allergy Mild ITCHY RASH Verified 05/16/19 13:24 Sulfa (Sulfonamide Allergy Mild ITCHY RASH Verified 05/16/19 13:24 Antibiotics) alendronate sodium Allergy Verified 05/16/19 13:24 [From Fosamax] atorvastatin Allergy Verified 05/16/19 13:24 paroxetine Allergy Verified 05/16/19 13:24 Consultations 05/16/19 18:08 ED Decision to Admit Stat 05/16/19 21:46 Consult Orthopedic Surgery Routine 05/17/19 10:18 Consult Pain Management Routine Ordered Studies 05/16/19 13:42 CT abd pelvis wo con Stat IMPRESSION: 1. An acute to subacute mild inferior endplate compression fracture at L5. This extends into the left L5 pedicle. No associated retropulsion. 2. Additional old compression deformities and vertebroplasty within the lumbar spine as described above. 3. No definite bowel wall thickening or obstruction on this noncontrast study. 4. Colonic diverticulosis. 5. Additional findings as described above. 05/16/19 15:50 MR lumbar spine wo con Stat IMPRESSION: 1. Prior compression deformities and vertebroplasty at L3 and L4. 2. Bone contusions of the L5 and S1 vertebral bodies. 3. Broad-based disc herniation with Moderate impact upon the anterior thecal sac at L2-L3 with moderate narrowing of the spinal canal. 4. Broad-based disc herniation at L3-L4 and L4-L5 combined with degenerative change posterior elements. Significant multifactorial narrowing of the spinal canal at both levels is suggested. 5. Considerable degenerative change posterior elements L5-S1 with moderate narrowing of the neural foramina bilaterally. Hospital Course (1) Back pain with right-sided radiculopathy: Present on admission with worsening low back pain radiated to the right lower extremity Back pain with right-sided radiculopathy due to lumbosacral herniation, and compression fracture of lumbar vertebra CT abd/pelvis showed acute to subacute mild inferior endplate compression fracture at L5. This extends into the left L5 pedicle. No associated ret ropulsion. Lumbar MRI showed: 1. Bone contusions of the L5 and S1 vertebral bodies. 3. Broad-based disc herniation with Moderate impact upon the anterior thecal sac at L2-L3 with moderate narrowing of the spinal canal. 4. Broad-based disc herniation at L3-L4 and L4-L5 combined with degenerative change posterior elements. Significant multifactorial narrowing of the spinal canal at both levels is suggested. 5. Considerable degenerative change posterior elements L5-S1 with moderate narrowing of the neural foramina bilaterally. Pt received IV morphine and Decadron 10 mg in the ER Orthopedics consulted - recommended conservative management and pain management consult - continued Decadron 10 mg q8h as per Dr. Walker (ortho), while inpt - Pain management consulted (Dr. Barnard), at this point pt denies any pain, recommend discharge on Tramadol, also provided pt with the contact information/ business card if further assistance needed from pain management Fall precaution Occipital Neuralgia Idiopathic peripheral neuropathy - Continue Lyrica COPD - hold Advair since pt is getting decadron 10mg q8h - Duoneb prn Abnormal CXR - CXR showed poorly defined parenchymal infiltrate left base - Denies any upper respiratory infection - Afebrile no leukocytosis - hold on antibiotic for now, but if pt develops respiratory symptoms/febrile will start on abx Paroxysmal A. fib Rate control with metoprolol Xarelto was discontinued few years ago due to rectal bleeding Continue aspirin HTN BP elevates possible due to low back pain Continue Losartan - added hydralazine prn for SBP above 170 Total Time Total Time Spent Total Time Spent (In Minutes): 35 Total Time Includes: Examination of the Patient, Discharge Planning, Medication Reconciliation and Communication With Other Providers Discharge Plan Discharge Items Patient Disposition: Home - Home Health Services Reason For Visit: LOW BACK PAIN Discharge Diagnosis: Back pain with right-sided radiculopathy due to lumbosacral herniation, and compression fracture of lumbar vertebra Activity: Resume your previous activity Activity Comment: as tolerated, pace yourself, ask for help as needed Non-emergency contact: Primary Care Provider and Neurologist Call non-emergency contact if: you have any medication questions and your symptoms worsen Follow-up/Referrals: Janay Hicks DO [Primary Care Provider] - Diet: Heart Healthy Addtl Attending Provider Instructions: Follow-up with your primary care provider within 1 week. For pain take Tylenol 1000 mg 3 times a day, maximal daily dose is 3000 mg. You can also use lidocaine patch, you can get those [id number] (Salonpas). For more severe pain, take prednisone or tramadol. If your pain is persistent please contact your pain management physician, Dr. Barnard. The contact information/business card was given to you. Pending Studies at Discharge: No Stand-Alone Forms: [facility], Smoking Cessation Medications and DC Order Prescriptions: New acetaminophen [Mapap (acetaminophen)] 325 mg Tablet 650 mg PO Q4H PRN (Reason: pain ) 10 Days Qty: 20 RF: 0 omeprazole 20 mg capsule,delayed release(DR/EC) 20 mg PO DAILY Qty: 30 RF: 0 Continued aspirin 325 mg tablet 325 mg PO DAILY RF: 0 multivitamin [Daily Multiple] tablet 1 tab PO DAILY RF: 0 cetirizine 10 mg tablet 10 mg PO DAILY Qty: 90 RF: 0 fluticasone propion-salmeterol 250-50 mcg/dose blister with device 1 puffs inhalation BID Qty: 3 RF: 0 mometasone 50 mcg/actuation spray,non-aerosol 2 sprays intranasal DAILY Qty: 3 RF: 0 losartan 50 mg tablet 50 mg PO DAILY RF: 0 metoprolol succinate [Toprol XL] 25 mg Tablet Extended Release 24 Hr 25 mg PO DAILY RF: 0 pregabalin 75 mg capsule 75 mg PO DAILY RF: 0 Discharge Orders: Discharge Order (Routine); Ordered 05/17/19 Ordered By: Glen Harmon/Other Patient Handouts: Tramadol Hydrochloride Oral tablet, Omeprazole Sodium Bicarbonate Oral capsule, Prednisone Oral tablet Admission Data Admit Date/Time: 05/16/19 20:57 Attending Provider: Glen Álvarez Admit Provider: Shanika Romero Primary Care Provider: Janay Hicks Other Providers: Shanika Romero ; Sagar Walker ; Basim Mendez ; Erica Barnard ; Reyes Payne ; Cathie Hooker ; [facility] Other Interventions: Discharge Summary Assessment (RN) Last Done: 05/17/19 19:28 DC Date/Time DO NOT enter until pt leaves facility: 05/17/19 19:55
[2019-05-17] MEDS: ACETAMINOPHEN 325 MG TAB PO PRN (19:38)
== END 2019-05-17 19:55 | disposition home health service (06) ==
LOC: ED 12:28 → 3W 12:28 → SUATTDRO 20:57 → 3W 21:31